=== PATIENT | male | born 1975 | race Caucasian/White ===

== ENCOUNTER 2016-09-13 23:00 | Emergency (ER) | payer OTHER ==
[~2016-09-13 23:00] MED LIST: ADVIL200 M2 PO; AMOXIL500 MG PO; BACTRIM DS 8001 TAB PO; BENTYL10 M1 PO; BENTYL20 MG PO; CIPRO 500MG TA500 MG PO; CRESTOR 10MG10 MG PO; DICYCLOMINE HCL10 MG PO; DILAUDID2 MG PO; ENDOCET 325 MG-1 TA1 PO; FLEXERIL10 MG PO; HYDROCODONE/ACE1 TA1 PO; IBUPROFEN800 MG PO; INDOCIN25 MG PO; KEFLEX500 MG PO; METRONIDAZOLE500 MG PO; MOBIC15 MG PO; MOTRIN600 MG PO; NAPROSYN500 M1 PO; NAPROXEN500 M1 PO; PERCOCET 325 MG1 TA2 PO; SUMATRIPTAN SU100 MG PO; TORADOL10 MG PO; VICODIN 5-3001 EACH PO; ZOFRAN ODT4 MG PO
--- NOTE | 2016-09-13 23:16 | ED GENERAL ADULT ---
History of Present Illness General Chief Complaint: Psychiatric Related Complaint Stated Complaint: ANXIETY ATTACK Source: patient, family, old records Exam Limitations: no limitations Vital Signs & Intake/Output Vital Signs & Intake/Output Vital Signs Date Time Temp Pulse Resp B/P Pulse O2 O2 Flow FiO2 Ox Delivery Rate 09/14 0053 97.6 95 18 110/69 96 09/13 2307 99.6 103 16 103/70 98 Room Air Room Air ED Intake and Output 09/14 0000 09/13 1200 Intake Total 30 Output Total Balance 30 Intake, Oral 30 Allergies Coded Allergies: NO KNOWN ALLERGIES (DENIES) (09/13/16) Reconcile Medications Dicyclomine Hydrochloride (Bentyl) 10 MG CAPSULE 1 CAP PO TID abdominal pain Lorazepam (Ativan) 1 MG TABLET 1 TAB PO BID PRN ANXIETY Naproxen (Naprosyn) 500 MG TABLET 1 TAB PO BID PRN pain, antiinflammatory Triage Note: PT STATES HE FEELS ANXIOUS AFTER HIS DOG HAD A SEIZURE. PT STATES HE CAN'T CALM DOWN AFTER. DENIES PHYSICAL COMPLAINTS. STATES HE NEEDS SOMETHING TO CALM DOWN Triage Nurses Notes Reviewed? yes Onset: Gradual Duration: hour(s): (3) Timing: recent history Injury Environment: home Severity: moderate Severity Numbers: 7 No Modifying Factors: none HPI: Patient is a 40-year-old male with history of panic attacks presenting to the emergency department with chief complaint of feeling very anxious and tense after witnessing his dog have a seizure. He reports that he is under a lot of stress because he lost a dog a few weeks ago and just lost his pet cat yesterday. He witnesses do not have a seizure this evening and he feels like he cannot calm down. He reports history of taking an antianxiety medication but has not taken one and "a while.". Denies any nausea or vomiting. He reports diffuse chest pressure. He feels that this is typical of his normal panic attack. Denies any numbness or tingling. Denies jaw pain. He does report like he feels his left arm is stiff. Denies any back pain. No lightheadedness or dizziness. He does feel like his heart is racing at times. Nothing seems to make his symptoms better or worse. Family history of cardiac issues. He reports that he just needs something help calm him down. (LAMIN SALEH,MARV) Past History Travel History Traveled to [place] past 21 day No Medical History Any Pertinent Medical History? 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 No (MARV WEBB) Review of Systems Review of Systems Constitutional: Reports: no symptoms. Comments Review of systems: See HPI, All other systems negative. Constitutional, no chills fever or weight loss HEENT: No visual changes no sore throat no congestion Cardiovascular: No orthopnea or ankle swelling Skin, no jaundice no rashes Respiratory: No dyspnea cough sputum or hemoptysis GI: No nausea no vomiting : No dysuria No hematuria Muscle skeletal: no back pain, no neck pain, Neurologic: No numbness no confusion, no headaches Psych: Positive stress, anxiety Heme/endocrine: No bruising no bleeding no polyuria or polydipsia Immunology: No splenectomy or history of AIDS (MARV WEBB) Physical Exam Physical Exam General Appearance: well developed/nourished, alert, awake, anxious Comments: Well-developed well-nourished person in no acute distress HEENT: Pupils equally round and reactive to light and accommodation. Nose is atraumatic. No bottom teeth. Neck: Normal inspection Back: Nontender Cardiovascular: Regular rate and rhythms no murmurs rubs or gallops, normal JVP Respiratory: Chest nontender. No respiratory distress.breath sounds clear to auscultation bilaterally Abdomen: Soft, nontender nondistended, no appreciable organomegaly. Normal bowel sounds. No ascites, no rebound or guarding. Extremity: No edema, no calf tenderness to palpation, normal and equal pulses. Neuro: Alert oriented x3, motor sensory normal Skin: No appreciable rash on exposed skin, skin is warm and dry. Psych: Anxious, intermittently tearful Core Measures ACS in differential dx? Yes CVA/TIA Diagnosis: No Severe Sepsis Present: No Septic Shock Present: No (MARV WEBB) Progress Differential Diagnoses I considered the following diagnoses in my evaluation of the patient: Panic attacks, generalized anxiety disorder, ACS, PE, pneumonia, bronchitis Plan of Care: Orders Procedure Date/time Status Telemetry/Caustic Room Operator 09/13 2314 Active TROPONIN LEVEL 09/13 2314 Complete COMPREHENSIVE METABOLIC PANEL 09/13 2314 Complete CHOLESTEROL 09/13 2314 Complete CBC WITHOUT DIFFERENTIAL 09/13 2314 Complete B-TYPE NATRIURETIC PEP (BNP) 09/13 2314 Complete EKG 09/13 2314 Active Laboratory Tests 09/13/16 2322: Methadone Screen Cancelled, Barbiturate Screen Cancelled, Ur Phencyclidine Scrn Cancelled, Amphetamines Screen Cancelled, U Benzodiazepines Scrn Cancelled, Urine Cocaine Screen Cancelled, Urine Cannabis Screen Cancelled 09/13/16 2316: Anion Gap 11, Estimated GFR > 60, BUN/Creatinine Ratio 15.0, Glucose 100 H, Calcium 9.6, Total Bilirubin 0.5, AST 24, ALT 38, Alkaline Phosphatase 65, Troponin I < 0.01, [id number] Pept 30.9, Total Protein 7.2, Albumin 4.3, Globulin 2.9, Albumin/Globulin Ratio 1.5, Cholesterol 198, CBC w Diff NO MAN DIFF REQ, RBC 5.13, MCV 84.9, MCH 28.1, RDW 13.6, MPV 7.7, Gran % 66.6, Lymphocytes % 23.2, Monocytes % 7.3, Eosinophils % 1.5, Basophils % 1.4, Absolute Granulocytes 10.2 H, Absolute Lymphocytes 3.5 H, Absolute Monocytes 1.1 H, Absolute Eosinophils 0.2, Absolute Basophils 0.2, PUBS MCHC 33.1 Diagnostic Imaging: Viewed by Me: Radiology Read. CXR Impression: no acute abnormality, no infiltrates, normal size heart, normal mediastinum Initial ED EKG: NSR (82 BPM) Prior EKG: unchanged Comments: 09/13/2016 11:20:49 PM patient likely suffering from acute panic attack. Patient is 40 although no history of cardiac issues patient will have cardiac workup secondary to complaining of chest pain. CBC, CMP, troponin, urinalysis and urine drug screen ordered. Patient given by mouth Ativan to help with symptoms. Resting comfortably at this time, we will place him on the monitor. PERC NEGATIVE. 09/14/2016 12:08:04 AM patient reports that he is feeling much improved after 1 mg by mouth Ativan. He reports that he would like to stay A while AND RELAX. Patient informed of negative blood work, EKG unremarkable. 09/14/2016 12:24:15 AM patient reports resolution of symptoms. Resting comfortably on the stretcher. He'll be sent home with prescription for Ativan and follow-up with PCP. Patient nontoxic. (MARV WEBB) Departure Departure Time of Disposition: 7 Disposition: HOME OR SELF CARE Condition: Stable Clinical Impression Primary Impression: Panic attack Referrals: MICHELLE HINTON APRN (PCP/Family) Additional Instructions: Follow-up with your primary care physician CALL TO MAKE appointment. Increase fluids. Take Ativan as prescribed for anxiety. Return for worsening symptoms or concerns. Departure Forms: Customer Survey General Discharge Information Prescriptions: Current Visit Scripts Lorazepam (Ativan) 1 TAB PO BID PRN ANXIETY #10 TAB (MARV WEBB) PA/PLATFORM STAPLER Co-Sign Statement Statement: ED Attending supervision documentation- [] I saw and evaluated the patient. I have also reviewed all the pertinent lab results and diagnostic results. I agree with the findings and the plan of care as documented in the PA's/PLATFORM STAPLER's documentation. x I have reviewed the ED Record and agree with the PA's/PLATFORM STAPLER's documentation. [] Additions or exceptions (if any) to the PAs/PLATFORM STAPLER's note and plan are summarized below: [] (WILLIE DENNEY,EDWIN) Critical Care Note Critical Care Note Critical Care Time: non-applicable (MARV WEBB)
[2016-09-13 23:26] LABS: ABSOLUTE BASOPHIL COUNT 0.2 /CUMM (0.0-0.2); ABSOLUTE EOSINOPHIL COUNT 0.2 /CUMM (0.0-0.7); ABSOLUTE GRANULOCYTE CT 10.2 /CUMM (1.4-6.5); ABSOLUTE LYMPH COUNT 3.5 /CUMM (1.2-3.4); ABSOLUTE MONOCYTE COUNT 1.1 /CUMM (0.10-0.60); BASOPHIL % 1.4 % (0.0-2.0); EOSINOPHIL % 1.5 % (0-5); GRANULOCYTE % 66.6 % (42.2-75.2); HEMATOCRIT 43.6 % (42-52); MEAN CORPUSCULAR HGB 28.1 PG (27.0-31.0); MEAN CORPUSCULAR HGB CONC 33.1 G/DL (33.0-37.0); MEAN CORPUSCULAR VOLUME 84.9 FL (80.0-94.0); MEAN PLATELET VOLUME 7.7 FL (7.4-10.4); PLATELET COUNT 232 /CUMM (130-400); RBC DISTRIBUTION WIDTH 13.6 % (11.5-14.5); RED BLOOD CELL CT 5.13 /CUMM (4.70-6.10); WHITE BLOOD CELL COUNT 15.3 /CUMM (4.8-10.8)
[2016-09-14] MEDS ORDERED: ATIVAN1 M1 PO (00:09)
--- NOTE | 2016-09-14 00:34 | RADIOLOGY REPORT ---
EXAMINATION: XR CHEST CLINICAL INFORMATION: Chest pain. Anxiety. COMPARISON: None TECHNIQUE: 2 views of the chest were obtained. FINDINGS: The lungs are well expanded. There is no focal consolidation, edema, or effusion. No pneumothorax. The cardiomediastinal silhouette is within normal limits. No acute osseous abnormality. IMPRESSION: No acute pulmonary findings.
[2016-09-14 00:53] VITALS: BP 110/69
== END 2016-09-14 00:54 ==
LOC: ERH 23:00
PROVIDERS: Physician Assistant
DX: F41.0 Panic disorder [episodic paroxysmal anxiety] (principal)
CPT/HCPCS: 80307; 93005; 93010

== ENCOUNTER 2016-11-26 05:03 | Emergency (ER) | payer OTHER ==
[~2016-11-26] VITALS: Ht 190.5 cm; Wt 102.1 kg
[~2016-11-26 05:03] MED LIST changes: +ATIVAN1 M1 PO
--- NOTE | 2016-11-26 05:11 | ED GI/GU/ABDOMINAL COMPLAINT ---
History of Present Illness General Chief Complaint: Abdominal Pain/Flank Pain Stated Complaint: LEFT SIDED SWELLING; PAIN Source: patient Exam Limitations: no limitations Vital Signs & Intake/Output Vital Signs & Intake/Output Vital Signs Date Time Temp Pulse Resp B/P B/P Pulse O2 O2 Flow FiO2 Mean Ox Delivery Rate 11/26 0514 97.9 84 18 127/84 96 Allergies Coded Allergies: NO KNOWN ALLERGIES (DENIES) (09/13/16) Reconcile Medications Cyclobenzaprine HCl 10 MG TABLET 1 TAB PO 4 TIMES/DAY PRN MUSCLE SPASM Dicyclomine Hydrochloride (Bentyl) 10 MG CAPSULE 1 CAP PO TID abdominal pain Ibuprofen 800 MG TABLET 1 TAB PO TID PRN pain Lorazepam (Ativan) 1 MG TABLET 1 TAB PO BID PRN ANXIETY Naproxen (Naprosyn) 500 MG TABLET 1 TAB PO BID PRN pain, antiinflammatory Oxycodone HCl/Acetaminophen (Percocet 5-325 MG Tablet) 5 MG-325 MG TABLET 1 TAB PO TID PRN pain six...[id number] Triage Nurses Notes Reviewed? yes Onset: Gradual Duration: day(s):, waxing and waning Timing: recent history Quality/Severity: sharpness Location: left lower quadrant Radiation: back Activities at Onset: none Prior Abdominal Problems: similar symptoms Modifying Factors: Worsens With: palpation. Associated Symptoms: abdominal pain, nausea/vomiting HPI: 41 yo gentleman h/o diverticulitis presents with left lower quadrant pain, radiating to left back, for the past 4 days, associated with nausea and vomiting, without diarrhea or change in stooling pattern. He has never had kidney stones before. He has no fever, chills, dysuria, chest pain, shortness of breath. Past History Travel History Traveled to [place] past 21 day No Medical History Any Pertinent Medical History? 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 No Review of Systems Review of Systems Constitutional: Reports: no symptoms. EENTM: Reports: no symptoms. Respiratory: Reports: no symptoms. Cardiovascular: Reports: no symptoms. GI: Reports: no symptoms. Genitourinary: Reports: no symptoms. Musculoskeletal: Reports: no symptoms. Skin: Reports: no symptoms. Neurological/Psychological: Reports: no symptoms. Hematologic/Endocrine: Reports: no symptoms. Immunologic/Allergic: Reports: no symptoms. All Other Systems: Reviewed and Negative Physical Exam Physical Exam General Appearance: well developed/nourished, mild distress Head: atraumatic, normal appearance Eyes: Bilateral: normal appearance. Ears, Nose, Throat, Mouth: hearing grossly normal Neck: normal inspection, supple, full range of motion, normal alignment Respiratory: normal breath sounds, chest non-tender, no respiratory distress, quiet respiration, lungs clear Cardiovascular: regular rate/rhythm Gastrointestinal: normal bowel sounds, soft, left lower quadrant tenderness to palpation. no rebound. no guarding. Back: normal inspection Extremities: normal range of motion Neurologic/Psych: no motor/sensory deficits, awake, alert, oriented x 3 Skin: intact, normal color, warm/dry Core Measures ACS in differential dx? No Severe Sepsis Present: No Septic Shock Present: No Progress Differential Diagnosis: diverticulitis vs kidney stones vs other. Plan of Care: Orders Procedure Date/time Status TROPONIN LEVEL 11/26 0507 Complete LIPASE 11/26 0507 Complete HEPATIC FUNCTION PANEL 11/26 0507 Complete CBC WITHOUT DIFFERENTIAL 11/26 0507 Complete BASIC METABOLIC PANEL 11/26 0507 Complete AMYLASE 11/26 0507 Complete EKG 11/26 0507 Active Laboratory Tests 11/26/16 0530: Anion Gap 11, Estimated GFR > 60, BUN/Creatinine Ratio 17.5, Glucose 97, Calcium 9.3, Total Bilirubin 0.6, Direct Bilirubin 0.2, AST 21, ALT 44, Alkaline Phosphatase 53, Troponin I < 0.01, Total Protein 6.9, Albumin 4.0, Amylase 43, Lipase 117, CBC w Diff NO MAN DIFF REQ, RBC 5.17, MCV 85.0, MCH 28.2, RDW 14.2, MPV 8.2, Gran % 58.1, Lymphocytes % 30.3, Monocytes % 7.9, Eosinophils % 2.9, Basophils % 0.8, Absolute Granulocytes 7.9 H, Absolute Lymphocytes 4.1 H, Absolute Monocytes 1.1 H, Absolute Eosinophils 0.4, Absolute Basophils 0.1, PUBS MCHC 33.1 Diagnostic Imaging: Viewed by Me: CT Scan. Discussed w/RAD: CT Scan. Radiology Impression: abd/pelvic... no acute change. Initial ED EKG: normal axis, normal intervals, normal p-waves, normal QRS complex, normal sinus rhythm Comments: PATIENT: KAR GIANG PRESENT AGE: 41 PATIENT ACCOUNT NO: [id number] : 74 LOCATION: ER ORDERING PHYSICIAN: JESSICA MORFIN MD SERVICE DATE: 11/26/16 EXAM TYPE: CAT - CT ABD & PELVIS W/O IV CONTRAS EXAMINATION: CT ABDOMEN AND PELVIS WITHOUT CONTRAST CLINICAL INFORMATION: Left lower quadrant pain. COMPARISON: 04/18/2016 TECHNIQUE: Multidetector volumetric imaging was performed from the superior aspect of the liver through the pubic symphysis. Sagittal and coronal reformatted images were obtained on the technologist's workstation. DLP: 583 mGy-cm FINDINGS: LUNG BASES: Thin-walled cyst at the right lung base. The lung bases are otherwise unremarkable. LIVER, GALLBLADDER, AND BILIARY TREE: The liver is normal in size, shape, and attenuation. No focal hepatic lesion or biliary ductal dilatation is present. The gallbladder is unremarkable with no evidence of radiopaque gallstones, gallbladder wall thickening, or obvious pericholecystic inflammatory changes. PANCREAS: Unremarkable. SPLEEN: Unremarkable. ADRENAL GLANDS: Unremarkable. KIDNEYS AND URETERS: The kidneys are normal in size, shape, and attenuation. No hydronephrosis, hydroureter, or calculi seen. No perinephric stranding. BLADDER: Decompressed with no gross abnormality. GASTROINTESTINAL TRACT: The stomach and small bowel are unremarkable. No dilated loops of bowel or evidence of obstruction. No colonic wall thickening or inflammatory change. Mild colonic stool burden. No significant diverticulosis. ABDOMINAL WALL: No significant hernia is appreciated. LYMPH NODES: No lymphadenopathy. Stable appearance of a "joe mesentery ". VASCULAR: Unremarkable. PELVIC VISCERA: The prostate and seminal vesicles are unremarkable. OSSEOUS STRUCTURES: No acute or suspicious osseous abnormality. IMPRESSION: No acute findings of the abdomen or pelvis. No diverticulitis. No acute inflammatory changes. Stable appearance of a "joe mesentery. " DICTATED BY: MARTILLOTTI MD,ROBERT DATE/TIME DICTATED:11/26/16538 RAIL SWITCHMAN:MICHELLE DATE/TIME TRANSCRIBED:11/26/16538 CONFIDENTIAL, DO NOT COPY WITHOUT APPROPRIATE AUTHORIZATION. <Electronically signed in Other Vendor System> SIGNED BY: MARYAN DENNEY,ROBERT 11/26 0545 Departure Departure Disposition: HOME OR SELF CARE Condition: Stable Clinical Impression Primary Impression: Abdominal pain Secondary Impressions: Back pain Referrals: MICHELLE HINTON APRN (PCP/Family) Departure Forms: Customer Survey General Discharge Information Prescriptions: Current Visit Scripts Oxycodone HCl/Acetaminophen (Percocet 5-325 MG Tablet) 1 TAB PO TID PRN pain #6 TAB six...[id number] Ibuprofen 1 TAB PO TID PRN pain #30 TAB Cyclobenzaprine HCl 1 TAB PO 4 TIMES/DAY PRN MUSCLE SPASM #30 TAB Ref 1 Comments 11/26/16, 6:23am... pt comfortable in ED... ct scan and labs benign. likely musculoskeletal back pain with possible musculoskeletal abdominal component vs viral syndrome... pt safe for discharge with close follow up advised.
[2016-11-26 05:41] LABS: ABSOLUTE BASOPHIL COUNT 0.1 /CUMM (0.0-0.2); ABSOLUTE EOSINOPHIL COUNT 0.4 /CUMM (0.0-0.7); ABSOLUTE GRANULOCYTE CT 7.9 /CUMM (1.4-6.5); ABSOLUTE LYMPH COUNT 4.1 /CUMM (1.2-3.4); ABSOLUTE MONOCYTE COUNT 1.1 /CUMM (0.10-0.60); BASOPHIL % 0.8 % (0.0-2.0); EOSINOPHIL % 2.9 % (0-5); GRANULOCYTE % 58.1 % (42.2-75.2); HEMATOCRIT 43.9 % (42-52); MEAN CORPUSCULAR HGB 28.2 PG (27.0-31.0); MEAN CORPUSCULAR HGB CONC 33.1 G/DL (33.0-37.0); MEAN PLATELET VOLUME 8.2 FL (7.4-10.4); PLATELET COUNT 224 /CUMM (130-400); RBC DISTRIBUTION WIDTH 14.2 % (11.5-14.5); RED BLOOD CELL CT 5.17 /CUMM (4.70-6.10); WHITE BLOOD CELL COUNT 13.7 /CUMM (4.8-10.8)
--- NOTE | 2016-11-26 05:45 | CT SCAN REPORT ---
EXAMINATION: CT ABDOMEN AND PELVIS WITHOUT CONTRAST CLINICAL INFORMATION: Left lower quadrant pain. COMPARISON: 04/18/2016 TECHNIQUE: Multidetector volumetric imaging was performed from the superior aspect of the liver through the pubic symphysis. Sagittal and coronal reformatted images were obtained on the technologist's workstation. DLP: 583 mGy-cm FINDINGS: LUNG BASES: Thin-walled cyst at the right lung base. The lung bases are otherwise unremarkable. LIVER, GALLBLADDER, AND BILIARY TREE: The liver is normal in size, shape, and attenuation. No focal hepatic lesion or biliary ductal dilatation is present. The gallbladder is unremarkable with no evidence of radiopaque gallstones, gallbladder wall thickening, or obvious pericholecystic inflammatory changes. PANCREAS: Unremarkable. SPLEEN: Unremarkable. ADRENAL GLANDS: Unremarkable. KIDNEYS AND URETERS: The kidneys are normal in size, shape, and attenuation. No hydronephrosis, hydroureter, or calculi seen. No perinephric stranding. BLADDER: Decompressed with no gross abnormality. GASTROINTESTINAL TRACT: The stomach and small bowel are unremarkable. No dilated loops of bowel or evidence of obstruction. No colonic wall thickening or inflammatory change. Mild colonic stool burden. No significant diverticulosis. ABDOMINAL WALL: No significant hernia is appreciated. LYMPH NODES: No lymphadenopathy. Stable appearance of a "joe mesentery ". VASCULAR: Unremarkable. PELVIC VISCERA: The prostate and seminal vesicles are unremarkable. OSSEOUS STRUCTURES: No acute or suspicious osseous abnormality. IMPRESSION: No acute findings of the abdomen or pelvis. No diverticulitis. No acute inflammatory changes. Stable appearance of a "joe mesentery. "
[2016-11-26] MEDS ORDERED: CYCLOBENZAPRINE10 M1 PO (06:22)
[2016-11-26] MEDS ORDERED: PERCOCET 5-3251 EACH PO (06:22)
[2016-11-26] MEDS ORDERED: IBUPROFEN800 M1 PO (06:22)
[2016-11-26 06:28] VITALS: BP 111/66
== END 2016-11-26 06:44 ==
LOC: ERH 05:03
PROVIDERS: Pediatrics
DX: R10.32 Left lower quadrant pain (principal); M54.9 Dorsalgia, unspecified; R11.2 Nausea with vomiting, unspecified
CPT/HCPCS: 74176; 93005; 93010; 96374; 96375; J1885; J2405

== ENCOUNTER 2018-01-30 07:40 | Emergency (ER) | payer OTHER ==
[~2018-01-30] VITALS: Ht 190.5 cm; Wt 104.8 kg
[~2018-01-30 07:40] MED LIST changes: +ATORVASTATIN CA10 M1 PO; +BUSPIRONE HCL10 M1 PO; +CYCLOBENZAPRINE10 M1 PO; +IBUPROFEN800 M1 PO; +INDOMETHACIN50 M1 PO; +KEFLEX500 M1 PO; +LIDODERM1 EACH TOP; +PERCOCET 5-3251 EACH PO
--- NOTE | 2018-01-30 08:16 | ED ANKLE/FOOT INJURY COMPLAINT ---
History of Present Illness General Chief Complaint: Lower Extremity Problems Stated Complaint: R ANKLE PAIN Source: patient, old records Exam Limitations: no limitations Vital Signs & Intake/Output Vital Signs & Intake/Output Vital Signs Date Time Temp Pulse Resp B/P B/P Pulse O2 O2 Flow FiO2 Mean Ox Delivery Rate 01/30 1011 97.0 72 20 131/70 98 01/30 0742 97.3 90 18 114/71 98 Room Air Allergies Coded Allergies: NO KNOWN ALLERGIES (DENIES) (09/13/16) Reconcile Medications Atorvastatin Calcium 10 MG TABLET 1 TAB PO DAILY CHOLESTEROL (Reported) Buspirone HCl 10 MG TABLET 1 TAB PO BID MENTAL HEALTH (Reported) Lidocaine (Lidoderm) 5 % ADH..PATCH 1 PAT TOP DAILY PRN pain may wear up to 12 hours Meloxicam 15 MG TABLET 1 TAB PO DAILY PRN pain Naproxen (Naprosyn) 500 MG TABLET 1 TAB PO BID gout Triage Note: 42 ANKLE X 2 MONTHS. WAS EVAL'D IN ED FOR SAME AND STATES HE HAD A NEGATIVE ULTRASOUND AND NEGATIVE XRAY; WAS TREATED FOR "SKIN INFECTION" WITH ANTIBIOTICS, NAPROSYN AND LIDODERM PATCH. STATES THE REDNESS IS GONE BUT SWELLING AND PAIN PERSIST. USES CRUTCH DUE TO SYMPTOMS. Triage Nurses Notes Reviewed? yes Duration: week(s): Timing: recent history Severity: moderate Pain/Injury Location: Right: Foot, 1st toe. Method of Injury: unknown HPI: 41-year-old male with history of hyperlipidemia presents emergency department complaining of right foot and toe pain 3 months. Patient has been seen here for similar symptoms in the past. Patient states that he saw an orthopedic doctor through [facility] and was referred here to the emergency department. The patient had labs drawn and was started on antibiotics for possible skin infection. Patient states that redness and swelling right foot has improved however he still has persistent pain. Pain began gradually in October with no injury prior to onset of symptoms. Patient states pain is typically worse at night and with walking. He denies numbness, tingling, ecchymosis, fevers, chills, vomiting. (Skylar SALEH,Deena Sim) Past History Travel History Traveled to [place] past 21 day No Medical History Any Pertinent Medical History? 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 No (Deena Ramírez) Review of Systems Review of Systems Constitutional: Reports: no symptoms. EENTM: Reports: no symptoms. Respiratory: Reports: no symptoms. Cardiovascular: Reports: no symptoms. GI: Reports: no symptoms. Genitourinary: Reports: no symptoms. Musculoskeletal: Reports: see HPI. Skin: Reports: see HPI. Neurological/Psychological: Reports: no symptoms. Hematologic/Endocrine: Reports: no symptoms. Immunologic/Allergic: Reports: no symptoms. All Other Systems: Reviewed and Negative (Deena Ramírez) Physical Exam Physical Exam General Appearance: well developed/nourished, no apparent distress, alert, awake Head: atraumatic, normal appearance Eyes: Bilateral: normal appearance. Ears, Nose, Throat: hearing grossly normal Neck: normal inspection, supple, full range of motion Cardiovascular/Respiratory: normal peripheral pulses, no respiratory distress Back: normal inspection, normal range of motion Leg/Knee/Thigh Left: normal range of motion, normal inspection Leg/Knee/Thigh Right: normal range of motion, normal inspection Ankle Left: normal inspection, normal range of motion Ankle Right: normal inspection, normal range of motion Foot Left: normal inspection, normal range of motion Foot Right: MILD TENDERNESS TO MEDIAL ASPECT OF FOOT AND GREAT TOE. nO ERYTHEMA OR SWELLING, SKIN COLOR WITHIN NORMAL LIMITS, DORSALIS PEDIS PULSE 2+ Neuro/Vascular: normal motor function, normal sensation, NO PULSE DEFICIT, CAPILLARY REFILL EQUAL BILATERALLY Tendon: normal tendon function Psychiatric: awake, alert, oriented x 3 Skin: intact, normal color, warm/dry (Deena Ramírez) Progress Differential Diagnosis: DVT, arterial insufficiency, cellulitis, septic arthritis, gout, fracture, sprain, contusion Plan of Care: Orders Procedure Date/time Status Durable Medical Equipment 01/30 0956 Active LACTIC ACID 01/30 0834 Complete HIGH SENSITIVITY CRP 01/30 0834 Complete COMPREHENSIVE METABOLIC PANEL 06/28 0834 Complete CBC WITHOUT DIFFERENTIAL 01/30 834 Complete Laboratory Tests 01/30/18 0845: Anion Gap 9, Estimated GFR > 60, BUN/Creatinine Ratio 11.3, Glucose 102 H, Lactic Acid 0.8, Calcium 9.7, Total Bilirubin 0.7, AST 25, ALT 37, Alkaline Phosphatase 53, C-React Prot High Sens 3.0, Total Protein 6.9, Albumin 4.1, Globulin 2.8, Albumin/Globulin Ratio 1.5, CBC w Diff NO MAN DIFF REQ, RBC 5.36, MCV 84.2, MCH 28.6, MCHC 33.9, RDW 14.0, MPV 8.4, Gran % 60.9, Lymphocytes % 27.0, Monocytes % 8.7, Eosinophils % 2.8, Basophils % 0.6, Absolute Granulocytes 6.7 H, Absolute Lymphocytes 3.0, Absolute Monocytes 1.0 H, Absolute Eosinophils 0.3, Absolute Basophils 0.1 Patient has had x-ray imaging and ultrasound here at [facility] within the past few weeks. Patient also had labs performed at the last visit which showed mild leukocytosis however ESR and CRP were within normal limits. Patient was unable to follow up with the layout man. The patient was seen and evaluated by Dr. Huffman. Dr. Huffman spoke with Dr. Deshpande regarding this patient. Dr. Deshpande states he will be to follow up with the patient tomorrow in the office. Labs were obtained today. They have improved compared to previous studies. Patient to begin meloxicam for his pain and follow with Dr. Deshpande tomorrow as scheduled. (Skylar SALEH,Deena Sim) Departure Departure Disposition: HOME OR SELF CARE Condition: Stable Clinical Impression Primary Impression: Foot pain Qualifiers: Laterality: right Qualified Code: M79.671 - Pain in right foot Referrals: Yenny Gallegos APRN (PCP/Family) Additional Instructions: Follow up with Dr. Deshpande regarding your ongoing foot pain. He can see you tomorrow. Call the office today to find out what time he would like to see you. Please note that there might be incidental findings in your evaluation that are unrelated to the current emergency department visit. Please notify your primary care doctor about this emergency department visit in order to obtain and review all of the testing performed so that these incidental findings can be monitored as needed. If you had an x-ray performed, please understand that some fractures may not be seen on the initial set of x-rays. If your symptoms persist you might need a repeat set of x-rays to check for such a fracture. If you had a laceration evaluated, please understand that foreign bodies such as glass or wood may not be visible to the naked eye or on plain x-rays. If the wound becomes red, swollen, increasingly more painful or if there is any drainage from the wound, please have it reevaluated by a physician for the possibility of a retained foreign body. If you're unable to follow up as outlined in the discharge instructions please return to the emergency department. Thank you for choosing the [facility] Emergency Department for your care. It was a pleasure to serve you today. Departure Forms: Customer Survey General Discharge Information Prescriptions: Current Visit Scripts Meloxicam 1 TAB PO DAILY PRN pain #15 TAB (Skylar SALEH,Deena Sim) PA/LOADING DOCK HAND Co-Sign Statement Statement: ED Attending supervision documentation- [X] I saw and evaluated the patient. I have also reviewed all the pertinent lab results and diagnostic results. I agree with the findings and the plan of care as documented in the PA's/LOADING DOCK HAND's documentation. [] I have reviewed the ED Record and agree with the PA's/LOADING DOCK HAND's documentation. [] Additions or exceptions (if any) to the PAs/LOADING DOCK HAND's note and plan are summarized below: [] I spoke to Dr. Smiley, he will see the patient tomorrow to facilitate obtaining MRI of the right foot No objective evidence of osteomyelitis. The right ankle was not warm, there is no redness he has had intermittent pain and sweliing of the right foot for weeks (John Huffman DO)
[2018-01-30 08:58] LABS: ABSOLUTE BASOPHIL COUNT 0.1 /CUMM (0.0-0.2); ABSOLUTE EOSINOPHIL COUNT 0.3 /CUMM (0.0-0.7); ABSOLUTE GRANULOCYTE CT 6.7 /CUMM (1.4-6.5); BASOPHIL % 0.6 % (0.0-2.0); EOSINOPHIL % 2.8 % (0-5); GRANULOCYTE % 60.9 % (42.2-75.2); HEMATOCRIT 45.1 % (42-52); MEAN CORPUSCULAR HGB 28.6 PG (27.0-31.0); MEAN CORPUSCULAR HGB CONC 33.9 G/DL (33.0-37.0); MEAN CORPUSCULAR VOLUME 84.2 FL (80.0-94.0); MEAN PLATELET VOLUME 8.4 FL (7.4-10.4); PLATELET COUNT 214 /CUMM (130-400); RED BLOOD CELL CT 5.36 /CUMM (4.70-6.10)
[2018-01-30] MEDS ORDERED: MELOXICAM15 M1 PO (09:00)
[2018-01-30 10:11] VITALS: BP 131/70
== END 2018-01-30 10:13 ==
LOC: ERH 07:40
PROVIDERS: Physician Assistant
DX: M79.671 Pain in right foot (principal)
CPT/HCPCS: 96372; J1885